=== PATIENT | male | born 1955 | race Asian ===

== ENCOUNTER 2022-11-25 08:23 | Day surgery (SDC) | payer OTHER ==
[~2022-11-25] VITALS: Ht 160 cm; Wt 76.7 kg
[2022-11-25] MEDS ORDERED: LIDOCAINE 2% 100 MG/5 ML UJET TP ONE ×2 (11:56→14:15)
[2022-11-25] MEDS ORDERED: fentaNYL citrate 0.05 MG/ML VIAL ONE (11:56)
[2022-11-25] MEDS ORDERED: MIDAZOLAM 5 MG/5 ML VIAL ONE (11:56)
[2022-11-25] MEDS ORDERED: fentaNYL citrate 0.05 MG/ML VIAL IVP ONE (14:15)
== END 2022-11-25 13:00 | disposition home or self-care (01) ==
LOC: MDS 08:23 → MMU 08:47 → MDS 13:00
PROVIDERS: ATTEND Internal Medicine Gastroenterology
DX: R19.5 Other fecal abnormalities (principal)
CPT/HCPCS: 45378; J3010; J2250